=== PATIENT | male | born 1970 | race Caucasian/White ===

== ENCOUNTER 2022-05-28 07:32 | Emergency (ER) | payer OTHER, SELFPAY ==
[2022-05-28] VITALS (9 sets, daily range): BP systolic 114–142; BP diastolic 53–86; PULSE 63–80; RESP 16–25; TEMP 36.6; O2SAT 96–100
--- NOTE | ~2022-05-28 | XR_ITS ---
EXAMINATION: XR chest 1V portable DATE: 05/28/2022 08:03 INDICATION: Chest pain and malaise TECHNIQUE: frontal view of the chest was obtained. COMPARISON: None FINDINGS: No focal airspace opacities, pulmonary edema, pleural effusion or pneumothorax. The cardiomediastinal silhouette is normal. Findings the bilateral acromioclavicular joints suggesting prior acromioplasti es. Small lucency with sclerotic margins at the neck of the proximal left humerus which could represe nt an anchor site for prior bicipital tenodesis or other indeterminate likely benign nonaggressive ly tic lesion. Plate-screw fixation for lower cervical anterior spinal fusion. IMPRESSION: 1. No acute cardiopulmonary disease. Reviewed, dictated and finalized at location A. [facility] ASSIGNMENT REPORTER
[2022-05-28] MEDS: HALOPERIDOL LACTATE 5 MG/ML VIAL IM (07:42)
[2022-05-28] MEDS: SODIUM CHLORIDE 0.9% IV 1,000 ML 999 ML IV CONT (07:45)
--- NOTE | 2022-05-28 07:46 | ED.GENADULT ---
HPI - General Adult General Chief complaint: Anxiety Stated complaint: SOB, Anxiety Time Seen by Provider: 05/28/22 07:32 History of Present Illness HPI narrative: Patient is a 52-year-old male with a history of bipolar disorder presenting with nausea and vomiting. Patient states that he has had numerous episodes of vomiting since last night. States shortly after he developed burning chest pain. States that this has happened in the past and his symptoms have improved with Haldol. Also complaining of diffuse abdominal pain. States that he continues to smoke marijuana. He denies headache, fevers, shortness of breath, cough, diarrhea, dysuria, leg swelling. Related Data Allergies Allergy/AdvReac Type Severity Reaction Status Date / Time No Known Allergies Allergy Verified 05/28/22 07:42 Review of Systems Review of Systems: All systems reviewed & are unremarkable except as noted in HPI and below Exam Narrative: GENERAL: Anxious, intermittently gagging, cooperative HEAD: Normocephalic, atraumatic. EYES: PERRLA and EOMI. ENT: Nares clear, no rhinorrhea or epistaxis. Mucous membranes dry NECK: Supple. CHEST: Clear to auscultation. No respiratory distress. HEART: Regular rate and rhythm. No murmur heard. Normal peripheral pulses. ABDOMEN: Soft, mild diffuse tenderness, nondistended EXTREMITIES: Normal range of motion. No edema. SKIN: Warm, dry, no rash. NEURO: No focal deficits. Alert and oriented x3. PSYCH: Normal mood and affect. Course Vital Signs Vital signs: Vital Signs Temperature 97.9 F 05/28/22 07:34 Pulse Rate 68 05/28/22 07:34 Respiratory Rate 16 05/28/22 07:34 Blood Pressure 134/78 05/28/22 07:34 Pulse Oximetry 100 05/28/22 07:34 Temperature 97.9 F 05/28/22 07:34 Pulse Rate 80 05/28/22 11:01 Respiratory Rate 21 H 05/28/22 10:01 Blood Pressure 114/71 05/28/22 12:16 Pulse Oximetry 99 05/28/22 11:01 Oxygen Delivery Room Air 05/28/22 07:45 Medical Decision Making [facility] Narrative Medical decision making narrative: Patient is a 52-year-old male presenting with nausea and vomiting for 12 hours. Vitals within normal limits. Exam remarkable for the above. Plan for belly labs, Haldol, IV fluids. Blood work with mild leukocytosis. Patient resting comfortably for several hours after receiving fluids and Haldol. He is tolerating p.o. intake. Feel he is safe for discharge home. Advised he abstain from cannabinoids. Appropriate supportive care discussed. Advised PCP follow-up. Appropriate return precautions given. Patient voiced understanding and is agreeable with plan. Discharged in stable condition. Vital Signs Vital Signs: Vital Signs Temperature 97.9 F 05/28/22 07:34 Pulse Rate 68 05/28/22 07:34 Respiratory Rate 16 05/28/22 07:34 Blood Pressure 134/78 05/28/22 07:34 Pulse Oximetry 100 05/28/22 07:34 Temperature 97.9 F 05/28/22 07:34 Pulse Rate 80 05/28/22 11:01 Respiratory Rate 21 H 05/28/22 10:01 Blood Pressure 114/71 05/28/22 12:16 Pulse Oximetry 99 05/28/22 11:01 Oxygen Delivery Room Air 05/28/22 07:45 Lab Data 05/28/22 08:16 05/28/22 08:16 Labs: Lab Results 05/28/22 05/28/22 Range/Units 08:16 08:16 WBC 13.5 H (4.5-10.0) K/mm3 RBC 4.61 (4.6-6.20) M/mm3 Hgb 14.6 (14.0-18.0) g/dL Hct 42.7 (42.0-52.0) % MCV 92.6 (80-100) fl MCH 31.7 (26-34) pg MCHC 34.2 (32-36) g/dl RDW 13.0 (11.5-14.5) % Plt Count 275 (150-375) k/mm3 MPV 10.1 (7.4-10.4) fl Immature Gran % (Auto) 0.5 (0-0.5) % Neut % (Auto) 89.5 H (45.5-73.1) % Lymph % (Auto) 5.4 L (18.3-44.2) % [place] % (Auto) 4.4 (2.6-8.5) % Eos % (Auto) 0.0 (0-4.4) % Baso % (Auto) 0.2 (0.2-1.2) % Lymph # (Auto) 0.73 L (0.9-3.2) K/mm3 [place] # (Auto) 0.6 (0.1-0.6) K/mm3 Eos # (Auto) 0.0 (0-0.3) K/mm3 Baso # (Auto) 0.0 (0.0-0.1) K/mm3 Abs Immat Gran (auto) 0.07
[2022-05-28] MEDS: LORazepam INJ (*CRX) 2 MG/ML VIAL 1 MG IV PUSH (07:50)
--- NOTE | 2022-05-28 07:55 | ECG_ITS ---
Measurements Intervals [place] Rate: 73 P: 71 [place]: 166 QRS: 75 QRSD: 106 T: 71 QT: 408 QTc: 450 Interpretive Statements SINUS RHYTHM WITH OCCASIONAL SUPRAVENTRICULAR PREMATURE COMPLEXES AND SINUS PAUSE BORDERLINE ECG NO PREVIOUS ECG AVAILABLE FOR COMPARISON Electronically Signed On 05-28-2022 13:38:29 [employer]ISUAL LEAD by Johnson Patel M.D.
[2022-05-28 08:20] LABS: Basophils Percent Auto 0.2 % (0.2-1.2); Hematocrit 42.7 % (42.0-52.0); Hemoglobin 14.6 g/dL (14.0-18.0); Immature Granulocyte Absolute 0.07 K/mm3 (0.00-0.031); Immature Granulocyte Percent A 0.5 % (0-0.5); Lymphocytes Absolute Auto 0.73 K/mm3 (0.9-3.2); Lymphocytes Percent Auto 5.4 % (18.3-44.2); Mean Corpuscular HGB Conc 34.2 g/dl (32-36); Mean Corpuscular Hemoglobin 31.7 pg (26-34); Mean Corpuscular Volume 92.6 fl (80-100); Mean Platelet Volume 10.1 fl (7.4-10.4); Monocytes Absolute Auto 0.6 K/mm3 (0.1-0.6); Monocytes Percent Auto 4.4 % (2.6-8.5); Neutrophils Absolute Auto 12.1 K/mm3 (1.3-6.7); Neutrophils Percent Auto 89.5 % (45.5-73.1); Platelet Count Result 275 k/mm3 (150-375); Red Blood Count 4.61 M/mm3 (4.6-6.20); White Blood Count 13.5 K/mm3 (4.5-10.0)
[2022-05-28 08:30] LABS: Alanine Aminotransferase 29 U/L (6-50); Albumin Level 4.4 g/dL (3.5-5.1); Alkaline Phosphatase 74 U/L (38-126); Anion Gap 9 mmol/L (8-16); Aspartate Amino Transferase 37 U/L (17-59); Bilirubin,Total 0.6 mg/dL (0.2-1.3); Blood Urea Nitrogen 14 mg/dL (9-20); Calcium 9.1 mg/dL (8.4-10.2); Carbon Dioxide 28 mmol/L (22-30); Chloride 99 mmol/L (98-107); Estimated CRCL calculation 115 ml/min; Estimated Glomerular Filt Rate > 60; Glucose 133 mg/dL (65-110); Lipase 66 U/L (23-300); Potassium 3.5 mmol/L (3.4-5.0); Sodium 136 mmol/L (137-145)
--- NOTE | 2022-05-28 08:30 | PC.NURSE ---
PT SLEEPING. DR MONTEJO OK WITH DELAY IN OBTAINING URINE SAMPLE.
[2022-05-28 08:42] LABS: Troponin I < 0.012 ng/mL (0.000-0.034)
== END 2022-05-28 15:45 | disposition home or self-care (01) ==
PROVIDERS: Emergency Provider Emergency Medicine
DX: R11.2 Nausea with vomiting, unspecified (principal)
CPT/HCPCS: 36415; 71045; 80053; 83690; 84484; 85025; 93005; 96361; 96372; 96374; 99284; J1630; J2060; J7030